=== PATIENT | female | born 1970 | race Two or more races ===

== ENCOUNTER 2017-04-07 17:29 | Inpatient (IN) | payer MEDICAID, OTHER ==
[~2017-04-07] VITALS: Ht 152.4 cm; Wt 78.1 kg
[2017-04-07 19:08] LABS: Basophils # (auto) 0 uL; Eosinophils # (auto) 0 uL; Hemoglobin 12.5 g/dL (12.2-16.2); Lymphocytes # (auto) 1.5 uL; Monocytes # (auto) 0.9 uL; Nucleated Red Blood Cells % 0.1 %
[2017-04-07 19:09] LABS: Basophils % (auto) 0.1 % (0.0-2.0); Eosinophils % (auto) 0.2 % (0.0-7.0); Lymphocytes % (auto) 13.6 % (10.0-50.0); Mean Corpuscular Hemoglobin 26.2 pg (28.0-32.0); Mean Corpuscular Hgb Conc. 32.1 g/dL (32.0-36.0); Mean Corpuscular Volume 81.5 fL (80.0-100.0); Monocytes % (auto) 8.1 % (0.0-12.0); Neutrophils # (auto) 8.7 uL; Platelet Count (auto) 343 10^3/uL (140-450); Red Blood Cells 4.78 10^6/uL (4.0-5.20); Red Cell Distribution Width 14.6 % (11.8-14.3); White Blood Cell 11.1 10^3/uL (4.4-10.8)
[2017-04-07 19:24] LABS: Albumin 3.8 g/dL (3.4-5.0); BUN/Creatinine Ratio 27.5; Bilirubin, Total 0.2 mg/dL (0.2-1.0); Calcium 8.8 mg/dL (8.5-10.1); Total Protein 8.7 g/dL (6.4-8.2)
[2017-04-07 19:32] LABS: Potassium 6.1 mmol/L (3.5-5.1)
[2017-04-07 20:24] LABS: Amylase 86 U/L (25-115); Lipase 622 U/L (73-393); Magnesium 2.3 mg/dL (1.6-2.6)
[2017-04-07 20:27] LABS: Urine Bacteria NONE SEEN /hpf (None Seen); Urine Blood TRACE /uL (Negative); Urine Specific Gravity 1.015 (1.001-1.035); Urine WBC 2 /hpf (0 - 5)
[2017-04-07] MEDS ORDERED: SODIUM CHLORIDE 0.9% 1,000 ML IV ONE (20:30)
[2017-04-07] MEDS ORDERED: ONDANSETRON HCL 4 MG/2 ML VIAL IV ONE (20:30)
[2017-04-07] MEDS ORDERED: NALBUPHINE HCL 10 MG/1ml INJECTION IV ONE (20:30)
[2017-04-07] MEDS ORDERED: SODIUM POLYSTYRENE SULF 15GM/60ML SUSP PO ONE (22:15)
[2017-04-07] MEDS ORDERED: cloNIDine HCL 0.1 MG TAB PO ONE (22:15)
[2017-04-08] VITALS (8 sets, daily range): BP systolic 119–164; BP diastolic 79–94
[2017-04-08] MEDS ORDERED: ONDANSETRON HCL 4 MG/2 ML VIAL IV PRN (00:45)
[2017-04-08] MEDS ORDERED: ACETAMINOPHEN 325 MG TAB PO PRN (00:45)
[2017-04-08] MEDS ORDERED: TEMAZEPAM 15 MG CAP PO PRN (00:45)
[2017-04-08] MEDS ORDERED: cloNIDine HCL 0.1 MG TAB PO PRN (00:45)
[2017-04-08] MEDS ORDERED: PANTOPRAZOLE 40 MG/10 ML VIAL IV ONE (00:45)
[2017-04-08] MEDS ORDERED: cefTRIAXone 1GM/10ml IVPUSH 10 ML IV ONE (00:45)
[2017-04-08] MEDS ORDERED: DEXTROSE (50%) 50ML SYRG IV PRN (00:45)
[2017-04-08] MEDS ORDERED: MORPHINE SULFATE 4 MG/ML SYR/VIAL IV PRN ×2 (00:45)
[2017-04-08] MEDS ORDERED: NITROGLYCERIN 0.4 MG SL TAB SL PRN (00:45)
[2017-04-08] MEDS: SODIUM CHLORIDE 0.9% 1,000 ML IV SCH ×2 (01:57→18:26)
[2017-04-08] MEDS ORDERED: LISI-646 PO (03:41)
[2017-04-08] MEDS ORDERED: DULA0.5I SC (03:41)
[2017-04-08] MEDS: ACCU-CHEK COMFORT CURVE STRIP VI SCH ×3 (05:49→18:25)
[2017-04-08] MEDS: InsuLIN REG 1unit/0.01ml Soln (100units/ml) SC SCH ×3 (05:50→18:00)
[2017-04-08] MEDS ORDERED: PANTOPRAZOLE 40 MG/10 ML VIAL IV SCH (10:00)
[2017-04-08] MEDS: ENOXAPARIN SOD 30 MG/0.3 ML SYRINGE SC SCH (10:00)
[2017-04-08] MEDS: PANTOPRAZOLE 40 MG TAB PO SCH ×2 (11:05→22:22)
[2017-04-08] MEDS: HYDROcodone-ACET 5/325MG TAB PO PRN ×2 (18:27→22:25)
[2017-04-08] MEDS ORDERED: cefTRIAXone 1GM/10ml IVPUSH 10 ML IV SCH (22:00)
[2017-04-09] MEDS: ACCU-CHEK COMFORT CURVE STRIP VI SCH ×5 (00:04→23:47)
[2017-04-09] MEDS: InsuLIN REG 1unit/0.01ml Soln (100units/ml) SC SCH ×5 (00:07→23:47)
[2017-04-09] MEDS: SODIUM CHLORIDE 0.9% 1,000 ML IV SCH ×3 (01:37→13:12)
[2017-04-09 05:00] VITALS: BP 143/68
[2017-04-09 07:18] LABS: Basophils # (auto) 0 uL; Basophils % (auto) 0.2 % (0.0-2.0); Eosinophils # (auto) 0.1 uL; Eosinophils % (auto) 0.6 % (0.0-7.0); Hematocrit 32.6 % (36.0-46.0); Hemoglobin 10.8 g/dL (12.2-16.2); Lymphocytes # (auto) 1.9 uL; Lymphocytes % (auto) 21.9 % (10.0-50.0); Mean Corpuscular Hgb Conc. 33.1 g/dL (32.0-36.0); Mean Corpuscular Volume 81.6 fL (80.0-100.0); Monocytes # (auto) 0.6 uL; Monocytes % (auto) 7.4 % (0.0-12.0); Neutrophils # (auto) 6.1 uL; Neutrophils % (auto) 69.9 % (37.0-80.0); Platelet Count (auto) 282 10^3/uL (140-450); Red Cell Distribution Width 14.8 % (11.8-14.3); White Blood Cell 8.7 10^3/uL (4.4-10.8)
[2017-04-09 07:26] LABS: Albumin 2.9 g/dL (3.4-5.0); Calcium 8.1 mg/dL (8.5-10.1); Potassium 4.7 mmol/L (3.5-5.1)
[2017-04-09 07:47] LABS: BUN/Creatinine Ratio 21.3; Bilirubin, Total 0.3 mg/dL (0.2-1.0); Total Protein 6.7 g/dL (6.4-8.2)
[2017-04-09 08:00] VITALS: BP 144/78
[2017-04-09 08:43] VITALS: BP 144/78
[2017-04-09] MEDS: ENOXAPARIN SOD 30 MG/0.3 ML SYRINGE SC SCH (10:26)
[2017-04-09] MEDS: PANTOPRAZOLE 40 MG TAB PO SCH ×2 (10:27→22:19)
[2017-04-09 12:32] VITALS: BP 139/79
[2017-04-09] MEDS ORDERED: amLODIPine BESYLATE 5 MG TAB PO ONE (13:00)
[2017-04-09 17:20] VITALS: BP 109/64
[2017-04-09 22:00] VITALS: BP 138/78
[2017-04-09] MEDS: HYDROcodone-ACET 5/325MG TAB PO PRN (22:23)
[2017-04-10] MEDS: SODIUM CHLORIDE 0.9% 1,000 ML IV SCH (03:01)
[2017-04-10 05:00] VITALS: BP 117/77
[2017-04-10] MEDS: ACCU-CHEK COMFORT CURVE STRIP VI SCH ×2 (05:29→12:00)
[2017-04-10] MEDS: InsuLIN REG 1unit/0.01ml Soln (100units/ml) SC SCH ×2 (05:29→12:00)
[2017-04-10 07:00] LABS: Basophils # (auto) 0 uL; Eosinophils # (auto) 0.1 uL; Platelet Count (auto) 271 10^3/uL (140-450)
[2017-04-10 07:03] LABS: Basophils % (auto) 0.2 % (0.0-2.0); Hematocrit 32.9 % (36.0-46.0); Hemoglobin 10.9 g/dL (12.2-16.2); Lymphocytes # (auto) 2.3 uL; Lymphocytes % (auto) 25.4 % (10.0-50.0); Mean Corpuscular Hemoglobin 27.2 pg (28.0-32.0); Mean Corpuscular Volume 82.4 fL (80.0-100.0); Monocytes # (auto) 0.6 uL; Monocytes % (auto) 7.2 % (0.0-12.0); Neutrophils % (auto) 66.2 % (37.0-80.0); Red Blood Cells 3.99 10^6/uL (4.0-5.20); Red Cell Distribution Width 14.3 % (11.8-14.3)
[2017-04-10 07:13] LABS: Calcium 7.8 mg/dL (8.5-10.1); Magnesium 1.9 mg/dL (1.6-2.6); Potassium 4.5 mmol/L (3.5-5.1)
[2017-04-10 07:18] LABS: BUN/Creatinine Ratio 21.3
[2017-04-10 09:00] VITALS: BP 130/75
[2017-04-10] MEDS: ENOXAPARIN SOD 30 MG/0.3 ML SYRINGE SC SCH (09:44)
[2017-04-10] MEDS: PANTOPRAZOLE 40 MG TAB PO SCH (09:44)
[2017-04-10] MEDS ORDERED: amLODIPine BESYLATE 5 MG TAB PO SCH (10:00)
[2017-04-10] MEDS ORDERED: PANT40T PO (11:15)
[2017-04-10] MEDS ORDERED: AML5T PO (11:16)
[2017-04-10 11:36] VITALS: BP 130/75
[2017-04-10 13:00] VITALS: BP 133/80
== END 2017-04-10 12:15 | disposition home or self-care (01) | DRG 282 ==
LOC: ER 17:30 → TELE 17:31 → TELE-EAST 04-08 03:57
PROVIDERS: ADMIT Nurse Practitioner; ATTEND Internal Medicine
DX: K85.90 Acute pancreatitis without necrosis or infection, unspecified (principal); N17.0 Acute kidney failure with tubular necrosis; K29.70 Gastritis, unspecified, without bleeding; E11.21 Type 2 diabetes mellitus with diabetic nephropathy; N18.4 Chronic kidney disease, stage 4 (severe); E87.5 Hyperkalemia; E11.22 Type 2 diabetes mellitus with diabetic chronic kidney disease; I12.9 Hypertensive chronic kidney disease with stage 1 through stage 4 chronic kidney disease, or unspecified chronic kidney disease; K80.20 Calculus of gallbladder without cholecystitis without obstruction; R74.8 Abnormal levels of other serum enzymes; G47.00 Insomnia, unspecified; D63.8 Anemia in other chronic diseases classified elsewhere; N28.89 Other specified disorders of kidney and ureter; Z86.73 Personal history of transient ischemic attack (TIA), and cerebral infarction without residual deficits; Z98.51 Tubal ligation status; Z79.899 Other long term (current) drug therapy
CPT/HCPCS: 36415; 70450; 71045; 74176; 76775; 80048; 80053; 81001; 81025; 82150; 82962; 83036; 83690; 83735; 84132; 84484; 85025; 87040; 93005; 96361; 96374; 96375; C9113; J1815; J2405

== ENCOUNTER → 2017-04-16 | Outpatient (CLI) | payer MEDICAID ==
[~2017-04-16] MED LIST: AML5T PO; DULA0.5I SC; PANT40T PO
[2017-04-16 17:19] LABS: Uric Acid 7.9 mg/dL (2.6-6.0)
[2017-04-16 17:51] LABS: CRP High Sensitivity 2.11 mg/dL (< 0.3)
== END | disposition home or self-care (01) ==
LOC: LAB 16:21
PROVIDERS: ATTEND Internal Medicine
DX: E11.9 Type 2 diabetes mellitus without complications (principal); M79.671 Pain in right foot
CPT/HCPCS: 36415; 84550; 85652; 86141

== ENCOUNTER → 2017-04-29 | Outpatient (CLI) | payer MEDICAID | END | disposition home or self-care (01) | LOC: LAB 14:59 | PROVIDERS: ATTEND Internal Medicine | DX: E11.22 Type 2 diabetes mellitus with diabetic chronic kidney disease (principal); I12.9 Hypertensive chronic kidney disease with stage 1 through stage 4 chronic kidney disease, or unspecified chronic kidney disease; N18.9 Chronic kidney disease, unspecified | CPT/HCPCS: 36415; 84550 ==